=== PATIENT | male | born 1990 | race Caucasian/White ===

== ENCOUNTER 2023-05-29 13:39 | Inpatient (IN) | payer MEDICAID ==
[~2023-05-29] VITALS: Ht 188 cm; Wt 83.0 kg
[2023-05-29 15:04] LABS: CHLORIDE 108 mEq/L (98-107); INDEX HEMOLYSI 1 (1-3); INDEX ICTERIC 2 (1-4); INDEX LIPEMIC 1 (1-3); POTASSIUM 3.8 mEq/L (3.5-5.1); SODIUM 138 mEq/L (136-145)
[2023-05-29 15:08] LABS: BASOPHILS % 1.2 % (0.0-2.0); DIFFERENTIAL COMMENT 0; EOSINOPHILS % 6.2 % (0.0-5.0); HEMATOCRIT. 36.6 % (42.0-52.0); HEMOGLOBIN. 12.6 g/dL (14.0-18.0); LYMPHOCYTES % 25.1 % (20.0-50.0); MEAN CORPUSCULAR HEMOGLOBIN 35.5 pg (28.0-32.0); MEAN CORPUSCULAR HGB CONC 34.3 g/dL (31.0-37.0); MEAN CORPUSCULAR VOLUME 103.4 fL (80.0-94.0); MEAN PLATELET VOLUME 8.7 fl (7.4-10.4); MONOCYTES % 12.7 % (2.0-8.0); NEUTROPHILS % 54.8 % (40.0-76.0); PLATELET 301 x1000/uL (130-400); RED BLOOD CELL COUNT 3.54 mill/uL (4.7-6.1); WHITE BLOOD COUNT 5.6 x1000/uL (4.5-11.0)
[2023-05-29 15:09] LABS: INR 1.1; PROTHROMBIN TIME 11.4 sec (9.6-11.0)
[2023-05-29 15:15] LABS: ALANINE AMINOTRANSFERASE 29 IU/L (13-61); ALBUMIN 4.1 g/dL (3.4-5.0); ASPARTATE AMINOTRANSFERASE 19 IU/L (15-37); CALCIUM 8.7 mg/dL (8.5-10.1); CARBON DIOXIDE 25 mEq/L (21-32); ETHANOL BLOOD < 10 mg/dL (-10); GLUCOSE 96 mg/dL (70-105); NT PRO B-TYPE NATRIURETIC PEP 18 pg/mL (5-125); PROTEIN TOTAL 7.5 g/dL (6.0-8.3); TROPONIN I HIGH SENSITIVITY 4 ng/L (<78); UREA NITROGEN BLOOD 13 mg/dL (7-21)
[2023-05-29] MEDS ORDERED: IPRATROPIUM BROMIDE (0.02%) 0.5MG/2.5ML NEB HHN STA (15:34)
[2023-05-29] MEDS ORDERED: METHYLPREDNISOLONE SOD SUCC 125MG/2ML (ACT-O-VIAL) IV STA (15:34)
[2023-05-29] MEDS ORDERED: ALBUTEROL (0.083%) 2.5MG/3ML NEB HHN STA (15:34)
[2023-05-29] MEDS ORDERED: METHYLPREDNISOLONE SOD SUCC 125MG VIAL IV NR (15:34)
[2023-05-29] MEDS ORDERED: SODIUM CHLORIDE 0.9% 1,000 ML IV ONE (16:00)
[2023-05-29 16:04] VITALS: PULSE 57; RESP 22; O2SAT 94
[2023-05-29 16:06] LABS: BILIRUBIN DIRECT 0.3 mg/dL (0.0-0.2)
[2023-05-29 18:34] LABS: CLARITY URINE CLEAR (CLEAR); COLOR URINE DARK YELLOW (YELLOW); GLUCOSE URINE NEGATIVE (NEGATIVE); KETONES URINE TRACE (NEGATIVE); LEUKOCYTE ESTERASE URINE NEGATIVE (NEGATIVE); NITRITE URINE NEGATIVE (NEGATIVE); OCCULT BLOOD URINE NEGATIVE (NEGATIVE); PH URINE 7.5 (4.5-8.0); PROTEIN URINE NEGATIVE (NEGATIVE); SPECIFIC GRAVITY URINE 1.021 (1.005-1.030); UROBILINOGEN URINE >8.0 E.U./dL (0.2-1.0)
[2023-05-29 18:37] LABS: RBC URINE NONE SEEN /hpf (0-2); WBC URINE NONE SEEN /hpf (0-2); YEAST URINE NONE SEEN
[2023-05-29 18:44] LABS: *AMPHETAMINES SCREEN URINE NEGATIVE (NEGATIVE); *BARBITURATES SCREEN URINE NEGATIVE (NEGATIVE); *BENZODIAZEPINES SCREEN URINE NEGATIVE (NEGATIVE); *COCAINE SCREEN URINE NEGATIVE (NEGATIVE); CANNABINOID URINE SCREEN PRESUMTIVE POSITIVE (NEGATIVE); ECSTASY MDMA SCREEN URINE NEGATIVE (NEGATIVE); METHADONE URINE SCREEN NEGATIVE (NEGATIVE); OPIATES URINE SCREEN NEGATIVE (NEGATIVE); PHENCYCLIDINE URINE SCREEN NEGATIVE (NEGATIVE)
[2023-05-29 19:09] LABS: BACTERIA URINE TRACE; SQUAMOUS EPITHELIAL CELL URINE RARE /lpf (RARE/1+)
[2023-05-30 00:30] VITALS: BP 139/68; PULSE 64; RESP 16; TEMP 98
[2023-05-30] MEDS ORDERED: IPRATROPIUM/ALBUTEROL 0.5-3(2.5)MG/3ML NEB HHN PRN (01:45)
[2023-05-30] MEDS ORDERED: DOCUSATE SODIUM 100MG CAPSULE PO PRN (01:45)
[2023-05-30] MEDS ORDERED: MAGNESIUM/ALUMINUM HYDROXIDE/SIMETHICONE 30ML UDC PO PRN (01:45)
[2023-05-30] MEDS ORDERED: CLONIDINE 0.1MG TABLET PO PRN (01:45)
[2023-05-30] MEDS ORDERED: GUAIFENESIN 200MG/10ML SUGAR FREE UDC PO PRN (01:45)
[2023-05-30] MEDS ORDERED: ACETAMINOPHEN 325MG TABLET PO PRN ×2 (01:45)
[2023-05-30] MEDS ORDERED: ONDANSETRON HCL 4MG/2ML INJ IV PRN (01:45)
[2023-05-30] MEDS ORDERED: LORAZEPAM 2MG/ML CPJ IV PRN (02:45)
[2023-05-30 04:00] VITALS: PULSE 64; RESP 16
[2023-05-30 07:18] LABS: INDEX HEMOLYSI 1 (1-3)
[2023-05-30 07:31] LABS: CREATINE KINASE 98 IU/L (39-308); CREATINE KINASE MB FRACTION < 1.0 ng/mL (0.5-3.6)
[2023-05-30 08:00] VITALS: BP 126/71; PULSE 73; RESP 22
[2023-05-30 08:24] LABS: TROPONIN I HIGH SENSITIVITY < 4 ng/L (<78)
[2023-05-30] MEDS ORDERED: ENOXAPARIN 40MG/0.4ML SYR SUBCUT SCH (09:00)
[2023-05-30 09:38] VITALS: BP 126/71; PULSE 73; RESP 22
[2023-05-30 13:35] LABS: HEPATITIS B SURFACE ANTIGEN NEGATIVE
[2023-05-30] MEDS ORDERED: FAMOTIDINE 20MG TABLET PO SCH ×2 (14:00→21:00)
[2023-05-30 14:04] LABS: HEPATITIS C VIR.AB 0.14 INDEXVAL (0.00-0.80)
== END 2023-05-30 12:15 | disposition left against medical advice (07) | DRG 140 ==
LOC: ER 13:39 → EDBEDREQ 15:47 → 3WST 21:21 → EDBEDREQ 21:29 → EDBEDREQTM 21:29 → ENRESERV 23:08
PROVIDERS: ADMIT Internal Medicine; ATTEND Internal Medicine
DX: J44.1 Chronic obstructive pulmonary disease with (acute) exacerbation (principal); K76.0 Fatty (change of) liver, not elsewhere classified; K83.8 Other specified diseases of biliary tract; R09.02 Hypoxemia; F17.210 Nicotine dependence, cigarettes, uncomplicated; Z53.29 Procedure and treatment not carried out because of patient's decision for other reasons; D53.9 Nutritional anemia, unspecified
CPT/HCPCS: 36415; 71045; 76705; 80053; 80305; 80320; 81003; 82248; 82550; 82553; 83880; 84484; 85025; 86803; 87340; 93005; 94640; 99285; J1650; J2930; J7030; G0480